=== PATIENT | male | born 1980 | race Caucasian/White ===

== ENCOUNTER 2024-10-15 04:09 | Emergency (ER) | payer SELFPAY ==
[2024-10-15 04:13] VITALS: BP 137/86; PULSE 84; RESP 15; TEMP 37.3; O2SAT 99; BMI 33.0
--- NOTE | 2024-10-15 04:18 | ED_ITS ---
HPI - Ear Problem General Chief complaint: Ear Stated complaint: LEFT EAR PAIN Time Seen by Provider: 10/15/24 04:14 Source: patient, RN notes reviewed and old records reviewed Mode of arrival: Ambulatory Limitations: no limitations History of Present Illness HPI Narrative: 44-year-old male history of tobacco use, opiate use who presents with complaint left ear pain. States it has been going on for several days just on the left side he feels like it is little bit swollen behind. He states his hearing is decreased currently on that side that it feels full. Patient denies any fevers. States he has had little bit of nasal congestion and cough recently. Denies any chest pain or shortness of breath. No nausea or vomiting. No abdominal pain. Notes he has had some diarrhea recently several times daily but no black or bloody stools. No urinary symptoms. Patient states no daily prescription medications. Denies any drug allergies. Denies any major surgeries. States he does use tobacco daily, denies regular alcohol use, uses marijuana states he does use fentanyl intermittently. Related Data Previous Rx's Medication Instructions Recorded amoxicillin 500 mg tablet 500 mg PO TID 10 days #30 tabs 10/15/24 Allergies Allergy/AdvReac Type Severity Reaction Status Date / Time No Known Drug Allergies Allergy Verified 10/15/24 04:12 Review of Systems Review of Systems ROS Unobtainable: All systems reviewed & are unremarkable except as noted in HPI and below Patient History Social History Smoking Status: Current every day smoker Exam Narrative Exam Narrative: GEN: well nourished, well appearing male, alert and oriented x 3, patient appears to be in mild distress. HEENT: Atraumatic, pupils are equal round reactive to light, extraocular movements are intact, nares are clear, right TM is clear with no fluid, left TM is erythematous, does not appear to be intact there is bulge and loss of the light reflex, canal itself does not appear to be irritated or swollen, no swel ling or tenderness of the external ear or tragus, there is no conjunctival pallor. Throat is clear without any exudates, erythema, tonsillar enlargement or uvular deviation HEART: Regular rate and rhythm without murmur, clicks, rubs. LUNGS:Lungs clear to auscultation, no wheezes, rales, crackles, chest moves symmetrically ABD:bowel sounds normal, soft, non-tender, no guarding, rebound, rigidity, no masses noted, no hepatosplenomegaly MSCL: Non-tender, no muscle atrophy, muscles strength 5/5 upper and lower extremities, full range of motion, normal gait NEURO:CN 2-12 intact, sensation normal. Initial Vital Signs Initial Vital Signs: Vital Signs Temperature 99.1 F 10/15/24 04:13 Pulse Rate 84 10/15/24 04:13 Respiratory Rate 15 10/15/24 04:13 Blood Pressure 137/86 10/15/24 04:13 Pulse Oximetry 99 10/15/24 04:13 Oxygen Delivery Method Room Air 10/15/24 04:13 Course Orders Ordered: Discontinued Medications Amoxicillin (Amoxicillin 250 Mg Capsule) 500 mg PO NOW ONE Stop: 10/15/24 04:27 Last Admin: 10/15/24 04:35 Dose: 500 mg Documented By: AB Vital Signs Vital signs: Vital Signs - 8 hr 10/15/24 04:13 Temperature 99.1 F Pulse Rate 84 Respiratory Rate 15 Blood Pressure 137/86 Pulse Oximetry 99 Oxygen Delivery Method Room Air Medical Decision Making [facility] Narrative Medical decision making narrative: 44-year-old male history of substance abuse comes in with complaint of left ear pain patient appears to have an otitis media on exam we will cover with oral antibiotics. Discharge Plan Departure Patient Disposition: Home Clinical Impression: Otitis media Instructions: Middle Ear Infection Activity Restrictions/Additional Instructions: You appear to have an infection or your inner ear or otitis media, take antibiotics until completed. Prescription was sent to [facility] in [place]. Please return for fevers, new swelling of your ear, face or neck, vomiting, difficulty with swallowing, swelling of the lips tongue or airway, changes to speech or other new or concerning changes. Prescriptions: New amoxicillin 500 mg tablet 500 mg PO TID 10 Days Qty: 30 0RF Stand Alone Forms: Patient Portal/API/Survey
[2024-10-15] MEDS: AMOXICILLIN 250 MG CAPSULE 500 MG PO (04:35)
--- NOTE | 2024-10-15 04:46 | PC.NURSE ---
seen and assessed in triage by Dr Booker
== END 2024-10-15 04:46 | disposition home or self-care (01) ==
PROVIDERS: Emergency Provider Emergency Medicine
DX: H66.92 Otitis media, unspecified, left ear (principal); F17.210 Nicotine dependence, cigarettes, uncomplicated; F11.10 Opioid abuse, uncomplicated
CPT/HCPCS: 99283